=== PATIENT | female | born 1980 | race Two or more races ===

== ENCOUNTER 2022-08-09 17:35 | Emergency (ER) | payer SELFPAY ==
[~2022-08-09] VITALS: Ht 162.6 cm; Wt 72.6 kg
[2022-08-09 17:38] VITALS: BP 137/91
--- NOTE | 2022-08-09 17:40 | NUR ---
BIBA TO BED 8
[2022-08-09 18:02] LABS: BASOPHILS # (AUTO) 0.1 K/uL (0.00-0.22); BASOPHILS % (AUTO) 0.4 % (0.0-2.0); EOSINOPHILS # (AUTO) 0.1 K/uL (0-0.4); EOSINOPHILS % (AUTO) 0.9 % (0.0-4.0); HEMATOCRIT 34.8 % (36-48); HEMOGLOBIN 11.4 g/dL (12.0-16.0); LYMPHOCYTES # (AUTO) 1.3 K/uL (2.5-16.5); LYMPHOCYTES % (AUTO) 9.9 % (20.5-51.1); MEAN CORPUSCULAR HEMOGLOBIN 26 pg (27-31); MEAN CORPUSCULAR HGB CONC 33 g/dL (33-37); MEAN CORPUSCULAR VOLUME 78.2 fL (80-94); MONOCYTES # (AUTO) 0.7 K/uL (0.8-1.0); MONOCYTES % (AUTO) 5.2 % (1.7-9.3); NEUTROPHILS # (AUTO) 10.8 K/uL (1.8-7.7); NEUTROPHILS % (AUTO) 83.6 % (42.2-75.2); PLATELET COUNT (AUTO) 282 K/uL (140-450); RED BLOOD CELL COUNT(AUTO) 4.45 MIL/uL (4.20-5.40); RED CELL DISTRIBUTION WIDTH 13.1 % (11.6-13.7); WHITE BLOOD COUNT (AUTO) 12.9 K/uL (4.8-10.8)
--- NOTE | 2022-08-09 18:12 | NUR ---
Dr. Cabrera evaluating patient at bedside
--- NOTE | 2022-08-09 18:14 | NUR ---
41 y/o female biba from [facility] for c/o left sided flank pain x 4 days. Per patient, she has been medicating with Tylenol with minimal relief. Patient denies any blood in urine or burning while urinating. Denies any fevers or vomiting. Patient reports nausea. Bertin Interpretor was used. Interpretor #: [id number]. Medical History: Denies NKDA
[2022-08-09 18:19] LABS: ALBUMIN 3.5 g/dL (3.4-5.0); ANION GAP 13.9 (8-16); CARBON DIOXIDE 24.7 mmol/L (21-32); CREATININE 0.9 mg/dL (0.6-1.3); POTASSIUM 3.6 mmol/L (3.5-5.1); TOTAL BILIRUBIN 0.4 mg/dL (0.0-1.0)
[2022-08-09] MEDS: ONDANSETRON 4 MG ODT PO ONE (18:35)
[2022-08-09 18:49] LABS: APPEARANCE,URINE CLEAR (CLEAR); BILIRUBIN,URINE NEGATIVE (NEGATIVE); BLOOD, URINE 1+ (NEGATIVE); COLOR,URINE YELLOW (YELLOW); LEUKOCYTE ESTERASE ,URINE NEGATIVE (NEGATIVE); NITRITE, URINE NEGATIVE (NEGATIVE); UGLUCOSE NEGATIVE (NEGATIVE)
[2022-08-09] MEDS: KETOROLAC 30 MG/ML VIAL IM ONE (18:56)
--- NOTE | 2022-08-09 18:56 | NUR ---
Patient taken to CT via wheelchair
--- NOTE | 2022-08-09 19:08 | NUR ---
Patient returned from CT.
--- NOTE | 2022-08-09 19:29 | NUR ---
Report given to ROBERT Parsons for transfer of care.
[2022-08-09 19:38] LABS: WBC,URINE NONE SEEN /HPF (0-5)
[2022-08-09] MEDS: NACL 0.9% 1,000 ML IV ONE (21:19)
--- NOTE | 2022-08-09 21:25 | NUR ---
PT IS RESTING IN BED WITH HOB ELEVATED. PT POS FOR KIDNEY STONE. DENIES PAIN AT THIS TIME. PT SPEAKS GAJARATI. AT BEDSIDE . PENDING DISPO
[2022-08-09] MEDS ORDERED: ONDA-188 SL (22:20)
[2022-08-09] MEDS ORDERED: IBUP-2213 PO (22:20)
[2022-08-09 22:30] VITALS: BP 137/91
--- NOTE | 2022-08-09 22:30 | NUR ---
Patient discharged with v/s stable. Written and verbal after care instructions given and explained. Patient alert, oriented and verbalized understanding of instructions. Ambulatory with steady gait. All questions addressed prior to discharge. ID band removed. Patient advised to follow up with PMD. Rx of IBUPROFEN ONDANSETRON given. Patient educated on indication of medication including possible reaction and side effects. Opportunity to ask questions provided and answered.
== END 2022-08-09 22:30 | disposition home or self-care (01) ==
LOC: EDBD 17:35 → MED 17:35
DX: N20.0 Calculus of kidney (principal); R11.2 Nausea with vomiting, unspecified; Z79.899 Other long term (current) drug therapy; Z79.1 Long term (current) use of non-steroidal anti-inflammatories (NSAID)
CPT/HCPCS: 36415; 74176; 80053; 81001; 81025; 83690; 85025; 96360; 96372; 99285; J1885; Q0162; J7030